=== PATIENT | female | born 1980 | race Two or more races ===

== ENCOUNTER 2017-05-30 11:19 | Emergency (ER) | payer SELFPAY ==
[~2017-05-30] VITALS: Ht 165.1 cm; Wt 54.4 kg
[2017-05-30 11:28] VITALS: BP 112/79
[2017-05-30] MEDS ORDERED: CLINDAMYCIN HC300 MG ORAL (13:52)
[2017-05-30] MEDS ORDERED: BACITRACIN-POL1 EACH TOPIC (13:52)
[2017-05-30 14:02] VITALS: BP 103/68
--- NOTE | 2017-05-30 14:06 | Emergency Room Report ---
History of Present Illness General Chief Complaint: Animal Bite Source: Patient Present Illness HPI 36-year-old female walked in with alleged dog bites to face. Patient states she was taking care of friend's dog for first time, and dog playfully that her to talk of left lip and also the right side of face. She states tetanus was updated 8 years ago. Patient's dog dedicated owner operator also present states that his dog has had all his shots, has been acting normal. Denies any drooling, or aggressive behavior recently and dog, or if dog had exposure to other animals. Patient denies any other medical problems including diabetes. Allergies: Coded Allergies: PENICILLINS (Verified Allergy, Unknown, 05/30/17) Patient History Past Medical History: none Past Surgical History: none Pertinent Family History: none Social History: Denies: smoking, alcohol use, drug use Now: No Immunizations: UTD Reviewed Nursing Documentation: PMH: Agreed, PSxH: Agreed Nursing Documentation-PMH Past Medical History: No Stated History Review of Systems All Other Systems: negative except mentioned in HPI Physical Exam Vital Signs Date Time Temp Pulse Resp B/P (MAP) Pulse Ox O2 Delivery O2 Flow Rate FiO2 05/30/17 11:22 97.2 76 20 112/79 99 Room Air Sp02 EP Interpretation: reviewed, normal General Appearance: normal inspection, well appearing, no apparent distress, alert, GCS 15, non-toxic Head: normocephalic, other - There is a 1 cm linear superficial laceration above the left upper lip, not a through and through laceration. No foreign body , dirt or active bleeding. Exam of mouth reveals no chipped tooth no unstable teeth Eyes: bilateral eye PERRL, bilateral eye EOMI ENT: normal ENT inspection, hearing grossly normal, normal pharynx, no angioedema, normal voice, TMs + canals normal, uvula midline, moist mucus membranes Neck: normal inspection, full range of motion, supple, thyroid normal, no meningismus, no bony tend Respiratory: normal inspection, lungs clear, normal breath sounds, no rhonchi, no respiratory distress, no retraction, no accessory muscle use, no wheezing, speaking full sentences Cardiovascular #1: regular rate, rhythm, no edema, no JVD, normal capillary refill Gastrointestinal: normal inspection, normal bowel sounds, non tender, soft, no mass, no peritonitis, non-distended, no guarding, no hernia, no pulsatile mass Genitourinary: no CVA tenderness Musculoskeletal: normal inspection, back normal, normal range of motion, no calf tenderness, pelvis stable, Namita's Sign negative Neurologic: normal inspection, alert, oriented x3, responsive, supervisor home economics III-XII nml as tested, motor strength/tone normal, cerebellar normal, normal gait, speech normal Psychiatric: normal inspection, judgement/insight normal, mood/affect normal, no suicidal/homicidal ideation, no delusions Skin: normal inspection, normal color, no rash, other - multiple small abrasions to right side of face, largest of which is 1/4cm just lateral to right nostril Lymphatic: normal inspection, no adenopathy Procedures Laceration/Wound Repair Laceration/Wound Repair : Consent: Verbal Wound Location: face Wound's Depth, Shape: superficial Wound Explored: clean Betadine Prep?: Yes Anesthesia: 1% Lidocaine Wound Debrided: minimal Wound Repaired With: sutures Suture Size/Type: 5:0 Layer Closure?: No Sling Applied?: Yes Patient Tolerated: Well Complications: None Medical Decision Making Diagnostic Impression: Primary Impression: Bite by animal ER Course vital signs stable, afebrile All abrasions and wounds were cleaned with high pressure saline Tetanus up-to-date small laceration above left lip repaired in the ER Patient was given prophylactic antibiotic clindamycin and given allergy to penicillin Understands to return in 5-7 days for suture removal ER course: Patient has remained stable during ED stay. Disposition: Patient is to be discharged to home. Prescriptions given are clindamycin Patient is instructed to follow up with the ED for suture removal in 5-7 days Strict return precautions discussed with patient such as fever, chills, worsening/severe pain, nausea, vomiting, which may indicate severe illness. Patient verbalizes understanding and agrees with plan. Please note that this Emergency Department Report was dictated using [employer] line cutter operator technology software, occasionally this can lead to erroneous entry secondary to interpretation by the dictation equipment Last Vital Signs Date Time Temp Pulse Resp B/P (MAP) Pulse Ox O2 Delivery O2 Flow Rate FiO2 05/30/17 14:02 90 18 103/68 98 Room Air 05/30/17 11:28 97.2 Status: improved Disposition: HOME, SELF-CARE Condition: Improved Scripts Bacitracin/Polymyxin B Sulfate* (BACITRACIN-POLYMYXIN OINTMENT*) 1 Each Packet 1 APPLIC TOPIC DAILY for 3 Days, #3 PACKET Prov: PARAM FISCHER M.D. 05/30/17 Clindamycin Hcl (CLINDAMYCIN HCL) 300 Mg Capsule 300 MG ORAL THREE TIMES A DAY for 3 Days, #9 CAP Prov: PARAM FISCHER M.D. 05/30/17 Referrals: NOT CHOSEN [facility]/,REFERRING (PCP) Patient Instructions: Animal Bite Additional Instructions: - take augmentin antibiotic twice a day next 3 days - Apply bacitracin to areas of abrasions on right side of face starting in 24- 36 hours - Return to ER or urgent care for suture removal in 5-7 days PARAM FISCHER M.D. May 30, 2017 14:06
== END 2017-05-30 14:04 | disposition home or self-care (01) ==
LOC: EMR 12:11
DX: S01.85XA Open bite of other part of head, initial encounter (principal); Z88.0 Allergy status to penicillin; W54.0XXA Bitten by dog, initial encounter; Y92.9 Unspecified place or not applicable
CPT/HCPCS: 99283

== ENCOUNTER 2017-06-06 09:28 | Emergency (ER) | payer SELFPAY ==
[~2017-06-06] VITALS: Ht 165.1 cm; Wt 54.4 kg
[~2017-06-06 09:28] MED LIST: BACITRACIN-POL1 EACH TOPIC; CLINDAMYCIN HC300 MG ORAL
[2017-06-06 09:35] VITALS: BP 121/78
[2017-06-06 09:55] VITALS: BP 121/78
--- NOTE | 2017-06-06 16:26 | Emergency Room Report ---
History of Present Illness General Chief Complaint: Wound Recheck/Suture Removal Source: Patient Present Illness HPI 36-year-old female presents to ED for suture removal. Patient was here on 05/30 for laceration to the upper lip and a suture was placed. Patient is here for suture removal. Denies any complaints. Denies any pain. States the wound is healing well. No other aggravating or relieving factors. Denies any other associated symptoms Allergies: Coded Allergies: PENICILLINS (Verified Allergy, Unknown, 05/30/17) Patient History Past Medical History: none Past Surgical History: none Pertinent Family History: none Social History: Denies: smoking, alcohol use, drug use Last Menstrual Period: 06/06/2017 Now: No Immunizations: UTD Reviewed Nursing Documentation: PMH: Agreed, PSxH: Agreed Nursing Documentation-PMH Past Medical History: No Stated History Review of Systems All Other Systems: negative except mentioned in HPI Physical Exam Vital Signs Date Time Temp Pulse Resp B/P (MAP) Pulse Ox O2 Delivery O2 Flow Rate FiO2 06/06/17 09:33 98.2 95 16 121/78 100 Room Air Sp02 EP Interpretation: reviewed, normal General Appearance: no apparent distress, alert, GCS 15, non-toxic Head: normocephalic Eyes: bilateral eye normal inspection, bilateral eye PERRL ENT: normal ENT inspection Neck: normal inspection Respiratory: normal inspection Cardiovascular #1: normal inspection Gastrointestinal: normal inspection Rectal: deferred Genitourinary: no CVA tenderness Musculoskeletal: normal inspection Neurologic: alert, oriented x3, responsive, motor strength/tone normal, sensory intact, speech normal Psychiatric: normal inspection Skin: other - wound well healed, C/D/I, suture in place Lymphatic: normal inspection Medical Decision Making Diagnostic Impression: Primary Impression: Encounter for removal of sutures ER Course Patient presents to the emergency department today for suture removal. patient' s wound appears well-healed, and sutures are ready to be removed today. Using sterile technique the sutures were removed patient tolerated procedure well without any difficulty. Patient was given advice in how to care for the wound patient is advised followup with his private care doctor in 2-3 days and return to emergency room for any worsening conditions as needed Last Vital Signs Date Time Temp Pulse Resp B/P (MAP) Pulse Ox O2 Delivery O2 Flow Rate FiO2 06/06/17 09:55 98.2 100 16 121/78 99 Room Air Status: improved Disposition: HOME, SELF-CARE Condition: Stable Referrals: NOT CHOSEN [facility]/MD,REFERRING (PCP) Patient Instructions: Suture Removal, Care After ELENI CAM M.D. Jun 06, 2017 16:25
== END 2017-06-06 09:55 | disposition home or self-care (01) ==
LOC: EMR 09:49
DX: S01.511D Laceration without foreign body of lip, subsequent encounter (principal); X58.XXXD Exposure to other specified factors, subsequent encounter; Z48.02 Encounter for removal of sutures; Z88.0 Allergy status to penicillin
CPT/HCPCS: 99282